=== PATIENT | male | born 1990 | race Caucasian/White ===

== ENCOUNTER 2017-05-06 10:02 | Emergency (ER) | payer OTHER ==
[~2017-05-06] VITALS: Ht 188 cm; Wt 84.0 kg
[2017-05-06 10:04] VITALS: Ht 188 cm; Wt 84.0 kg
[2017-05-06 11:12] LABS: ADD SCAN DIFF NO
[2017-05-06 11:17] LABS: ABNORMAL IP MESSAGE 1; HEMATOCRIT 45.2 % (42.0-52.0); HEMOGLOBIN 15.4 g/dl (14.0-18.0); MEAN CORPUSCULAR HGB CONC 34.1 g/dl (32.0-37.0); MEAN CORPUSCULAR VOLUME 85.1 fl (82.0-101.0); MEAN PLATELET VOLUME 10.6 fl (7.4-10.4); PLATELET COUNT 212 10^3/UL (140-415); RED BLOOD COUNT 5.31 10^6/ul (4.70-6.10); WHITE BLOOD COUNT 13.7 10^3/ul (4.8-10.8)
[2017-05-06 11:38] LABS: CALCIUM 9.8 mg/dl (8.4-10.2); CREATININE 0.76 mg/dl (0.61-1.24); POTASSIUM 4.6 mmol/L (3.5-5.1)
[2017-05-06] MEDS ORDERED: SOD CHLORIDE 0.9% 100 ML ONE (11:54)
[2017-05-06] MEDS ORDERED: IOHEXOL 300MG/ML 150 ML BTL ONE (11:54)
[2017-05-06] MEDS ORDERED: SOD CHLORIDE 0.9% 1,000 ML IV ONE (12:00)
--- NOTE | 2017-05-06 12:40 | RADRPT ---
PROCEDURE: CT soft tissue neck with contrast CLINICAL INDICATION: Neck mass, sore throat 1 month TECHNIQUE: A CT of the soft tissues of the neck with contrast was performed on a multidetector CT s Primedic, with multiplanar reformats. 80 cc Omnipaque-300 intravenous contrast were administered. O ne or more of the following dose reduction techniques were used: Automated exposure control, adjustm ent in mA and / or kV according to patient size, use of iterative reconstructive technique. CTDI vo l = 9 mGy and DLP = 299 mGy-cm. COMPARISON: None available FINDINGS: The bilateral palatine tonsils are symmetrically enlarged. There is asymmetry of the lingual tonsil s with relative fullness on the left with associated effacement of the left vallecula. The palatine and lingual tonsils enhance somewhat heterogeneously. There are enlarged upper bilateral internal jugular chain nodes at the jugulodigastric regions measuring up to 2.3 cm in short axis on the right and 1.7 cm on the left. Multiple additional smaller lymph nodes are present in the neck bilaterall y which do not meet size criteria, 1 cm or less in short axis, identified in the bilateral internal jugular chains and posterior cervical triangles, bilateral submandibular regions, lateral retrophary ngeal regions bilaterally and left supraclavicular region. Lymph nodes are relatively homogeneous i n appearance. These findings are nonspecific. No rim enhancing fluid collection suggest abscess is identified. The larynx is unremarkable. The thyroid gland and rest of visceral space structures are unremarkab le. The parapharyngeal and retropharyngeal spaces are clear. The parotid and submandibular glands are unremarkable. The imaged gettering operator spaces are symmetric. The imaged skull base is intact. Th e perivertebral space is unremarkable. The imaged orbits are unremarkable. Oral cavity structures appear unremarkable. Imaged mastoids and paranasal sinuses are grossly clear. The rest of the osse ous structures appear intact. Lung apices are grossly clear. IMPRESSION: 1. Enlarged bilateral palatine tonsils and asymmetric fullness at the left lingual tonsil, with enl arged bilateral upper cervical lymph nodes and multiple additional smaller bilateral cervical nodes which are nonspecific. Findings may be inflammatory - reactive in nature, but neoplastic process youngblood ch as lymphoma is difficult to exclude. Correlate clinically. 2. No abscess identified. RPTAT: VV .Chris Amaya MD, MD Date Time Electronically viewed and signed by .Chris Amaya MD, on 05/06/2017 12:39 .O/
[2017-05-06 13:07] LABS: EOSINOPHILS # 0.4 10^3/ul (0.0-0.5); LYMPHOCYTES # 7.3 10^3/ul (0.8-2.9); MONOCYTE # 1.4 10^3/ul (0.3-0.9)
[2017-05-06] MEDS ORDERED: IBUP-1542 PO (13:48)
[2017-05-06] MEDS ORDERED: ACET1TAB40 PO (13:48)
--- NOTE | 2017-05-06 15:42 | ERD ---
ER Documentation Chief Complaint Date/Time DATE: 05/06/17 TIME: 15:31 Chief Complaint BIB SELF C/O SORE THROAT X 1 MONTH. DX STREP AT URGENT CARE. SWOLLEN TONSIL HPI 27-year-old male complaining of sore throat 1 month. Patient stated that he first noticed the glands on the rest that his next swollen 1 month ago. Over time has increasing size. He went to urgent care 2 weeks ago was given Z-Migue for strep pharyngitis. (Patient has allergy to penicillins). There is no improvement in his symptoms after Z-Migue. He went to another urgent care clinic 5 days ago, for culture was obtained. He was told that throat culture was positive for group C strep. He was given another course of Z-Migue. He is currently on day 2 of the second Z-Migue. Patient reports pain with swallowing. He had fatigue at the onset of the symptoms. Denies any current fever or chills. Denies shortness of breath. ROS All systems reviewed and are negative except as per history of present illness. Medications Home Meds Active Scripts Acetaminophen with Codeine (Acetaminophen-Cod #3 Tablet) 1 Each Tablet, 1 TAB PO Q6H Y for SEVERE PAIN LEVEL 7-10, #10 TAB Prov:SHANI GAONA. DIRECTOR OF MARKET ANALYSIS 05/06/17 Ibuprofen* (Motrin*) 600 Mg Tab, 600 MG PO Q6H Y for PAIN AND OR ELEVATED TEMP, #30 TAB Prov:SHANI GAONA. DIRECTOR OF MARKET ANALYSIS 05/06/17 Allergies Allergies: Coded Allergies: Penicillins (Verified Allergy, Unknown, 05/06/17) PMhx/Soc Medical and Surgical Hx: pt denies Medical Hx, pt denies Surgical Hx Hx Alcohol Use: Yes (Social) Hx Substance Use: No Hx Tobacco Use: No Smoking Status: Never smoker Physical Exam Vitals Vital Signs Date Time Temp Pulse Resp B/P Pulse Ox O2 Delivery O2 Flow Rate FiO2 05/06/17 10:04 99.0 129 18 142/95 97 Physical Exam General: Well-developed, well-nourished, conscious and coherent, in no distress Skin: Warm and dry without rash, good texture and turgor Head: Normocephalic without evidence of trauma Eyes: Sclera and conjunctivae normal; pupils equal, round, and reactive to light; extraocular movements are intact Ears: Canals are patent. Tympanic membranes are clear Nose/Face: Without rhinorrhea Mouth/throat: Mucous membranes are moist. Posterior pharynx erythematous and swollen, tonsils 2+, with white exudates. Neck: Supple without meningismus or adenopathy. Carotids are equal. Trachea midline. No bruits or JVD Chest: Normal AP diameter. Good expansion without retractions. Nontender. Lungs are clear to auscultate bilaterally with good tidal volume Heart: Regular rate and rhythm. No murmur, rub, or gallops heard Abdomen: Soft and nontender without masses, guarding, or rebound. Bowel sounds are active. No hepatosplenomegaly Back: Without spinal or CVA tenderness Extremities: Full range of motion. Good strength bilaterally. No clubbing, cyanosis, or edema. Peripheral pulses are intact. Sensation intact Neuro: Alert and oriented 4, GCS 15. Cranial nerves grossly intact. Motor and sensory exams nonfocal. Moves all extremities. Speech clear. Gait normal Result Diagram: 05/06/17 1104 05/06/17 1104 Results 24 hrs Laboratory Tests Test 05/06/17 11:04 05/06/17 11:54 White Blood Count 13.710^3/ul Red Blood Count 5.3110^6/ul Hemoglobin 15.4g/dl Hematocrit 45.2% Mean Corpuscular Volume 85.1fl Mean Corpuscular Hemoglobin 29.0pg Mean Corpuscular Hemoglobin Concent 34.1g/dl Red Cell Distribution Width 12.0% Platelet Count 91739^3/UL Mean Platelet Volume 10.6fl Neutrophils % 29.0% Band Neutrophils % 3.0% Lymphocytes % 53.0% Monocytes % 10.0% Eosinophils % 3.0% Basophils % % Promyelocytes % 1.0% Neutrophils # 4.010^3/ul Lymphocytes # 7.310^3/ul Monocytes # 1.410^3/ul Eosinophils # 0.410^3/ul Basophils # 10^3/ul Promyelocytes # 0.1 Differential Comment MANUAL DIFF Large Platelets OCCASIONAL Sodium Level 143mmol/L Potassium Level 4.6mmol/L Chloride Level 104mmol/L Carbon Dioxide Level 30mmol/L Anion Gap 14 Blood Urea Nitrogen 9mg/dl Creatinine 0.76mg/dl Glucose Level 113mg/dl Calcium Level 9.8mg/dl Monoscreen Positive Current Medications Medications (Trade) Dose Ordered Sig/Sadie Route PRN Reason Start Time Stop Time Status Last Admin Dose Admin Sodium Chloride (NS) 1,000 ml @ 1,000 mls/hr Q1H ONCE IV 05/06/17 12:00 05/06/17 12:59 DC 05/06/17 12:06 IV Flush 10 ml 10 ml STK-MED ONCE .ROUTE 05/06/17 11:54 05/06/17 11:55 DC Sodium Chloride (NS) 100 ml @ ud STK-MED ONCE .ROUTE 05/06/17 11:54 05/06/17 11:55 DC Iohexol (Omnipaque 300mg/ ml) 150 ml STK-MED ONCE .ROUTE 05/06/17 11:54 05/06/17 11:55 DC PROCEDURE: CT soft tissue neck with contrast CLINICAL INDICATION: Neck mass, sore throat 1 month TECHNIQUE: A CT of the soft tissues of the neck with contrast was performed on a multidetector CT scanner, with multiplanar reformats. 80 cc Omnipaque-300 intravenous contrast were administered. One or more of the following dose reduction techniques were used: Automated exposure control, adjustment in mA and / or kV according to patient size, use of iterative reconstructive technique. CTDI vol = 9 mGy and DLP = 299 mGy-cm. COMPARISON: None available FINDINGS: The bilateral palatine tonsils are symmetrically enlarged. There is asymmetry of the lingual tonsils with relative fullness on the left with associated effacement of the left vallecula. The palatine and lingual tonsils enhance somewhat heterogeneously. There are enlarged upper bilateral internal jugular chain nodes at the jugulodigastric regions measuring up to 2.3 cm in short axis on the right and 1.7 cm on the left. Multiple additional smaller lymph nodes are present in the neck bilaterally which do not meet size criteria, 1 cm or less in short axis, identified in the bilateral internal jugular chains and posterior cervical triangles, bilateral submandibular regions, lateral retropharyngeal regions bilaterally and left supraclavicular region. Lymph nodes are relatively homogeneous in appearance. These findings are nonspecific. No rim enhancing fluid collection suggest abscess is identified. The larynx is unremarkable. The thyroid gland and rest of visceral space structures are unremarkable. The parapharyngeal and retropharyngeal spaces are clear. The parotid and submandibular glands are unremarkable. The imaged garnett room worker spaces are symmetric. The imaged skull base is intact. The perivertebral space is unremarkable. The imaged orbits are unremarkable. Oral cavity structures appear unremarkable. Imaged mastoids and paranasal sinuses are grossly clear. The rest of the osseous structures appear intact. Lung apices are grossly clear. IMPRESSION: 1. Enlarged bilateral palatine tonsils and asymmetric fullness at the left lingual tonsil, with enlarged bilateral upper cervical lymph nodes and multiple additional smaller bilateral cervical nodes which are nonspecific. Findings may be inflammatory - reactive in nature, but neoplastic process such as lymphoma is difficult to exclude. Correlate clinically. 2. No abscess identified. RPTAT: VV .Chris Amaya MD, MD Date Time Electronically viewed and signed by .Chris Amaya MD, on 05/06/2017 12:39 .O/ CC: FIGUEROA BARBER DO Procedures/MDM 27-year-old male presented ED with his sore throat 1 month. Slight leukocytosis with WBC 13.7 was seen, CBC otherwise unremarkable. BMP is negative. CT neck soft tissue with IV contrast showed enlarged bilateral palatine tonsils and asymmetric fullness at the left lingual tonsil, with enlarged bilateral upper cervical lymph nodes and multiple additional smaller bilateral cervical nodes which are nonspecific. No peritonsillar abscess is seen on CT. Monospot was also obtained, which was positive for mononucleosis. Anticipated guidance regarding disease course given to the patient. Patient advised to avoid contact sports for next few weeks. Patient appears well, stable for discharge and outpatient management. Medical decision making shared with patient and family. Education provided to patient and family. Patient and family expressed understanding of the plan. Medications on discharge: Ibuprofen, Tylenol No. 3. Follow-up: Primary care provider in 2-3 days or return to ED if worse. Departure Diagnosis: Primary Impression: Mononucleosis Condition: Stable Patient Instructions: Mononucleosis Referrals: COMM[facility] YOU HAVE RECEIVED A MEDICAL SCREENING EXAM AND THE RESULTS INDICATE THAT YOU DO NOT HAVE A CONDITION THAT REQUIRES URGENT TREATMENT IN THE EMERGENCY DEPARTMENT. FURTHER EVALUATION AND TREATMENT OF YOUR CONDITION CAN WAIT UNTIL YOU ARE SEEN IN YOUR DOCTORS OFFICE WITHIN THE NEXT 1-2 DAYS. IT IS YOUR RESPONSIBILITY TO MAKE AN APPOINTMENT FOR FOLOW-UP CARE. IF YOU HAVE A PRIMARY DOCTOR --you should call your primary doctor and schedule an appointment IF YOU DO NOT HAVE A PRIMARY DOCTOR YOU CAN CALL OUR PHYSICIAN REFERRAL HOTLINE AT IF YOU CAN NOT AFFORD TO SEE A PHYSICIAN YOU CAN CHOSE FROM THE FOLLOWING [facility] [address] [facility] [address] [facility] [address] [facility] [facility] [address] [facility] [address] [facility] [address] [facility]. [facility]. [address] Additional Instructions: Call your primary care doctor TOMORROW for an appointment during the next 1 WEEK.Tell the secretary receptionist that you were referred from this facility.See the doctor sooner or return here if your condition worsens before your appointment time. SHANI GAONA. BARBARA May 06, 2017 15:42
== END 2017-05-06 13:58 | disposition home or self-care (01) ==
LOC: FTE 10:02
DX: B27.90 Infectious mononucleosis, unspecified without complication (principal)
CPT/HCPCS: 70491; 80048; 85025; 86308; J7030; Q9967; Z7502; Z7610